=== PATIENT | female | born 1975 | race Caucasian/White ===

== ENCOUNTER 2018-12-07 08:51 | Day surgery (SDC) | payer MEDICAID ==
--- NOTE | 2018-12-05 17:08 | PREOPHP ---
DATE OF ADMISSION: 12/07/2018 Scheduled for surgery outpatient on 12/07/2018. HISTORY OF PRESENT ILLNESS: The patient is a 43-year-old female in overall good health who presents with a history of a left breast mass for 7 years which is recently increasing in size. 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 She is scheduled to undergo excisional biopsy of her left breast mass. PAST MEDICAL HISTORY: MEDICATIONS: None. ALLERGIES: NONE. OPERATIONS: x2. OBSTETRIC AND GYNECOLOGIC HISTORY: Para 2, 2. She is having regular menstrual periods. PHYSICAL EXAMINATION: VITAL SIGNS: 5-foot, 123 pounds. Normal stable vital signs. HEENT: Within normal limits. LUNGS: Clear. HEART: Regular rate, rhythm. BREASTS: Medium in size and not ptotic. Right breast is unremarkable. The left breast reveals a ma ss at 2 o'clock 4 cm from the nipple which is mobile. There is no palpable axillary or supraclavicul ar lymphadenopathy. IMPRESSION: Left breast mass. PLAN: Excisional biopsy of the left breast mass. DISCUSSION: Full discussion has been had with the patient regarding the nature of her condition and the nature of the surgery, indications, alternatives, options and risks including bleeding, infection , need for additional surgery based on final pathology, scarring, distortion of the breast, et cetera . All questions have been answered. She understands and agrees to proceed. Dictated By: RAYSA ELLER/NASH Conf#: [id number] DID#: [id number]
[2018-12-07] VITALS (13 sets, daily range): BP systolic 92–132; BP diastolic 46–73; PULSE 69–86; RESP 14–21; Ht 144.8 cm; Wt 55.8 kg
[~2018-12-07] VITALS: Ht 144.8 cm; Wt 55.8 kg
[~2018-12-07 08:51] MED LIST: BUPIVACAINE 0.5% (SDV) 30 ML INJ ONE; CEFAZOLIN 1 GM/50 ML (PMX) 50 ML IVPB ONE; SOD CHLORIDE 0.9% 1,000 ML IV SCH
--- NOTE | 2018-12-07 09:43 | HPN ---
Date/Time of Note Date/Time of Note DATE: 12/07/18 TIME: 09:43 Interval H&P Admission Note Pt. seen H&P reviewed: No system changes RAYSA GONZALEZ Dec 07, 2018 09:43
--- NOTE | 2018-12-07 10:07 | PREAC ---
Date/Time of Note Date/Time of Note DATE: 12/07/18 TIME: 10:02 Anesthesia Eval and Record Evaluation Time Pre-Procedure Interview DATE: 12/07/18 TIME: 10:02 Age 43 Sex female NPO: 8 hrs Preoperative diagnosis left breast mass Planned procedure excision of left breast mass Past Medical History Past Medical History: None Surgery & Anesthesia Issues No known issue Meds Anticoagulation: No Beta Akash within 24 hr: No Reason Beta Akash not given: Pt. not on B-Akash No Active Prescriptions or Reported Meds Current Medications Sodium Chloride 1,000 ml @ 75 mls/hr [id number] IV ; Start 12/07/18 at 08:00; Stop 12/07/18 at 21:19 Meds reviewed: Yes Allergies Coded Allergies: No Known Allergy (Unverified , 12/07/18) Allergies Reviewed: Yes Labs/Studies Labs Reviewed: Reviewed by anesthesiologist Result Diagram: 12/07/18 0940 Laboratory Tests 12/07/18 09:40 test: Negative Pre-procedure Exam Last vitals Vital Signs Date Temp Pulse Resp B/P (MAP) Pulse Ox O2 O2 Flow FiO2 Time Delivery Rate 12/07/18 97.8 73 18 132/65 100 Room Air 09:58 (87) Airway: Adequate mouth opening, Adequate thyromental dist Mallampati: Mallampati II Teeth: Normal Lung: Normal Heart: Normal ASA Physical Status ASA physical status: 1 Emergency: None Planned Anesthetic General/MAC: LMA Planned Pain Management Parenteral pain med Pre-operative Attestations Prior to commencing anesthesia and surgery, the patient was re-evaluated, there was verification of: *The patient's identity *The results of appropriate recent lab work and preoperative vital signs *The above evaluation not changing prior to induction *Anesthetic plan, risk benefits, alternative and complications discussed with patient/family; questions answered; patient/family understands, accepts and wishes to proceed. Safety Scientist used MICHAEL MASSEY MD Dec 07, 2018 10:07
[2018-12-07] MEDS ORDERED: LIDOCAINE 2% (SDV) 5 ML INJ ONE (10:13)
[2018-12-07] MEDS ORDERED: MIDAZOLAM 1 MG/ML 2 ML INJ ONE (10:13)
[2018-12-07] MEDS ORDERED: PROPOFOL 20 ML ONE (10:13)
[2018-12-07] MEDS ORDERED: CEFAZOLIN 1 GM INJ ONE (10:20)
[2018-12-07] MEDS ORDERED: DEXAMETHASONE 4 MG/ML 5 ML INJ ONE (10:22)
[2018-12-07] MEDS ORDERED: ONDANSETRON 4 MG INJ ONE (10:22)
[2018-12-07] MEDS ORDERED: FENTAnyl 50 MCG/ML VIAL ONE (10:22)
[2018-12-07] MEDS ORDERED: FAMOTIDINE 20 MG INJ ONE (10:23)
[2018-12-07] MEDS ORDERED: ONDANSETRON 4 MG INJ IV PRN (10:30)
[2018-12-07] MEDS ORDERED: FENTAnyl 50 MCG/ML VIAL IV PRN (10:30)
[2018-12-07] MEDS ORDERED: HYDROmorphONE 1 MG/5 ML IV SYRINGE IV PRN (10:30)
[2018-12-07] MEDS ORDERED: OXYCODONE/ACETAMINOPHEN (5/325) TAB PO PRN (10:30)
[2018-12-07] MEDS ORDERED: MEPERIDINE 25 MG INJ IV PRN (10:30)
[2018-12-07] MEDS ORDERED: DIPHENHYDRAMINE 50 MG INJ IV PRN (10:30)
[2018-12-07] MEDS ORDERED: KETOROLAC 30 MG INJ ONE (11:01)
--- NOTE | 2018-12-07 11:08 | SIPON ---
Date/Time of Note Date/Time of Note DATE: 12/07/18 TIME: 11:05 Operative Report Preoperative Diagnosis left breast mass Postoperative Diagnosis same Operation/Procedure Performed excision of left breast mass Surgeon see signature line interior design assistant none Anesthesia: general Estimated blood loss: minimal Transfusion Required none Specimen left breast mass Grafts/Implants none Complications none RAYSA GONZALEZ Dec 07, 2018 11:08
--- NOTE | 2018-12-07 11:20 | PAC ---
Date/Time of Note Date/Time of Note DATE: 12/07/18 TIME: 11:19 Post-Anesthesia Notes Post-Anesthesia Note Last documented vital signs Vital Signs Date Temp Pulse Resp B/P (MAP) Pulse Ox O2 O2 Flow FiO2 Time Delivery Rate 12/07/18 98.0 11:12 12/07/18 73 18 132/65 100 Room Air 09:58 (87) Activity: WNL Respiratory function: WNL Cardiovascular function: WNL Mental status: Baseline Pain reasonably controlled: Yes Hydration appropriate: Yes Nausea/Vomiting absent: Yes Comments BP: 95/60 HR: 82 RR: 15 T: 98 SaO2: 99% MICHAEL MASSEY MD Dec 07, 2018 11:20
[2018-12-07] MEDS ORDERED: EPHEDrine SULFATE 50 MG/5 ML SYG IV PRN (11:30)
--- NOTE | 2018-12-07 13:13 | OPR ---
DATE OF OPERATION: 12/07/2018 SURGEON: Raysa Adrian MD MECHATRONICS ENGINEER: None. ANESTHESIOLOGIST: Dr. Ro. ANESTHESIA: General. PREOPERATIVE DIAGNOSIS: Left breast mass. POSTOPERATIVE DIAGNOSIS: Left breast mass. OPERATION PERFORMED: Excision of left breast mass. INDICATIONS: Patient presented with a 7-year history of a gradually enlarging mass in the outer portion of the left breast with a mass measuring approximately 4 x 4 cm. 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 PROCEDURE: The patient was taken to the operating room and under general anesthesia, with sequential compression device stockings in place, she was prepped and draped in the usual fashion. A radial incision was made from the areolar border towards the outer aspect of the breast at the 3 o'clock position. Hemostasis was achieved with cautery. Flaps were dissected circumferentially. The very hard infiltrative type mass was resected with suture markers denoting anterior, superior and medial. The specimen was removed and given off the field for pathology. The field was irrigated and hemostasis carefully achieved with cautery. The incision was closed with interrupted 3-0 Vicryl, deep dermal subcutaneous sutures followed by continuous 4-0 Monocryl subcuticular suture. Mastisol and 1/2-inch Steri-Strips were applied, followed by dry sterile dressing. Final sponge and needle counts were correct. The patient tolerated the procedure well and left the operating room in good condition. Dictated By: RAYSA ELLER/NASH Conf#: [id number] [facility]#: [id number] [facility] HOSPITALMarybel
== END 2018-12-07 12:55 | disposition home or self-care (01) ==
LOC: SDS 08:51
PROVIDERS: ATTEND Surgery
DX: D24.2 Benign neoplasm of left breast (principal)
CPT/HCPCS: 19120; 80053; 85025; 88307; J0690; J1100; J1885; J2250; J2405; J3010; Z7610; 88341; 88342